=== PATIENT | male | born 1960 | race Caucasian/White ===

== ENCOUNTER 2024-03-18 10:04 | Emergency (ER) | payer BC, SELFPAY ==
[2024-03-18 10:18] VITALS: BP 113/94
[2024-03-18 11:02] LABS: COVID-19 Antigen Negative (Negative)
--- NOTE | 2024-03-18 11:41 | ED.GENMED ---
History of Present Illness
General
Chief Complaint: Cold/Flu/URI Symptoms
Source: patient and spouse
Time Seen by Provider: 03/18/24 11:36
History of Present Illness
History of Present Illness:
63-year-old male presents to the emergency room complaining of 24 hours of fever, body aches, cough. Patient's temperature was measured this morning and was reportedly 104.8. He took aspirin at 8 AM. The patient's decided he should come to
the emergency room based on the height of his temperature. He did receive a flu shot this year. Patient denies feeling short of breath.
Past History
Past History
ED Past Medical History: HTN
ED Past Surgical History: None
Social History
Personal:
Phy Exam
Physical Exam
Physical Exam:
General: Awake, Alert, Oriented X3. No acute distress.
Vitals: unremarkable
Head: Atraumatic
Eyes: Pupils equal, EOMI
Throat: Airway intact, no exudates
Neck: Trachea midline
Lungs: Clear and equal b/l
Heart: Regular rate, no murmurs
Abd: Soft, Nontender, No pulsatile mass
Neuro: Nonfocal
Skin: Warm, dry, no rash
Extremities: pulses equal b/l, no edema
Course
Orders/Labs/Results
Orders:
Orders
03/18/24 10:25
COVID-19 Antigen Urgent
Source: Nasal Swab
Influenza A+B Rapid Molecular Urgent
ARPIT Source: Nasal Swab
Specimen Description:
03/18/24 11:43
Acetaminophen [Tylenol] 1,000 mg PO NOW STA
Vital Signs
Initial and Last Documented VS:
Initial Vital Signs
Temp Pulse Resp BP Pulse Ox
100.4 F H 120 20 113/94 95
03/18/24 10:18 03/18/24 10:18 03/18/24 10:18 03/18/24 10:18 03/18/24 10:18
Last Documented Vital Signs
Temp Pulse Resp BP Pulse Ox
100.4 F H 120 20 113/94 95
03/18/24 10:18 03/18/24 10:18 03/18/24 10:18 03/18/24 10:18 03/18/24 10:18
MDM/Problems Addressed
Differential Diagnosis Includes:
COVID, influenza, acute bronchitis, pneumonia
MDM/Problems Addressed:
Patient presents with fever, body aches, cough. His flu test is positive. He is only had symptoms for 24 hours. Given the test is positive at home any further testing is at this point. Given the side effect profile with Tamiflu I do not believe
this patient would benefit from it. Patient stable for discharge home.
*Pulse Oximetry
Patient hypoxic: no
*Critical Care Note
Total Time (30-74mins, 75-104mins- exclusive of procedures): Not Applicable
ED Attending Note
-
Portions of this chart may have been created with voice recognition software.� Occasional wrong word or��sound alike� substitutions may have occurred due to the inherent limitations of voice recognition software.
Discharge Plan
Departure
Patient Disposition: Home (Routine Discharge)
Date of Disposition: 03/18/24
Time of Disposition: 11:41
Patient with high blood pressure during this ER visit?: No
Condition: Good
Discharge Problem:
Influenza A
Instructions: Fever, Adult (DC), Flu in adults - ED discharge instructions
Prescriptions:
No Action
multivitamin [TAB A KARLOS] Tablet
1 tab PO DAILY
zinc acetate 50 mg (zinc) Capsule
50 mg PO DAILY
trazodone 50 mg tablet
50 mg PO HS
citalopram 10 mg tablet
10 mg PO HS
meloxicam 15 mg tablet
15 mg PO DAILY
lisinopril 5 mg tablet
5 mg PO DAILY
furosemide 20 mg tablet
20 mg PO DAILY
finasteride 1 mg tablet
1 mg PO HS
cholecalciferol (vitamin D3) [Vitamin D3] 25 mcg (1,000 unit) Tablet
25 mcg PO DAILY
sulfamethoxazole-trimethoprim [Bactrim DS] 800-160 mg tablet
1 tab PO BID Qty: 14 0RF
cephalexin 500 mg capsule
500 mg PO BID 7 Days Qty: 14 0RF
Stand Alone Forms: Return to Work
Interventions
Interventions:
*Risk Screen - Suicide Last Done: 03/18/24 10:18
*General Assessment Last Done: 03/18/24 10:18
*ED COVID-19 Vaccine History Last Done: 03/18/24 10:18
*Nursing Disposition Last Done: 03/18/24 12:10
ED- Pulmonary Assessment Last Done: 03/18/24 11:50
Discharge Date and Time
Discharge Date/Time: 03/18/24 12:10
Print Language: [id number]
[2024-03-18] MEDS: TYLENOL 1000 MG PO (11:48)
== END 2024-03-18 12:10 | disposition home or self-care (01) ==
LOC: EMR 10:04
PROVIDERS: EMERGENCY PHYSICIAN Emergency Medicine; FAMILY PHYSICIAN Family Medicine
DX: J10.1 Influenza due to other identified influenza virus with other respiratory manifestations (principal); I10 Essential (primary) hypertension
CPT/HCPCS: 99283; 87502; 87811